=== PATIENT | male | born 1945 | race Hispanic/Latino ===

== ENCOUNTER 2018-11-25 15:29 | Inpatient (IN) | payer OTHER ==
[2018-11-25] MEDS ORDERED: PROVENTIL IH ONE ×2 (15:59→18:27)
[2018-11-25] MEDS ORDERED: ATROVENT IH ONE (15:59)
[2018-11-25] MEDS ORDERED: MAGNESIUM SULFATE 2GM/50ML 2 GM/50 ML BAG IV ONE (15:59)
[2018-11-25] MEDS ORDERED: SOLU-Medrol IV ONE (15:59)
--- NOTE | 2018-11-25 16:08 | Emergency Department Report ---
HPI - General Chief Complaint: Dyspnea/Respdistress Time Seen by Provider: 11/25/18 15:55 - HPI HPI: 73-year-old male presents to the emergency department via EMS with complaint of shortness of breath. The patient was on his way driving from [facility] to [place] and was in the area when he became very short of breath. He pulled over and they called EMS. He was given a breathing treatment in route with some improvement. He has a past medical history of asthma, hypertension and non-oxygen dependent COPD. He is still a tobacco smoker but denies any illicit drug use. He denies any fever, chest pain, back pain, nausea, lower extremity swelling, vomiting or diaphoresis. ED Past Medical Hx - Past Medical History Previous Medical History?: Yes Hx Hypertension: Yes Hx Asthma: Yes Hx COPD: Yes Additional medical history: enlarged heart - Surgical History Past Surgical History?: Yes Hx Appendectomy: Yes Additional Surgical History: hernia, left leg - Social History Smoking Status: Current Every Day Smoker Substance Use Type: None ED Review of Systems ROS: Stated complaint: SUNNY Other details as noted in HPI Comment: All other systems reviewed and negative Constitutional: denies: chills Eyes: denies: eye pain, vision change ENT: denies: ear pain, throat pain Respiratory: shortness of breath, wheezing Cardiovascular: denies: chest pain, edema Gastrointestinal: denies: abdominal pain, vomiting Genitourinary: denies: dysuria, discharge Musculoskeletal: denies: back pain, arthralgia Skin: denies: rash, lesions Neurological: denies: headache, weakness Physical Exam - Physical Exam Vital Signs: Vital Signs 11/25/18 11/25/18 15:47 15:51 Temperature 98.5 F Pulse Rate 80 Respiratory 20 20 Rate Blood Pressure 138/87 Blood Pressure 138/87 [Left] O2 Sat by Pulse 93 93 Oximetry Physical Exam: GENERAL: The patient is well-developed well-nourished. HENT: Normocephalic. Atraumatic. Patient has moist mucous membranes. EYES: Extraocular motions are intact. Pupils equal reactive to light bilaterally. NECK: Supple. Trachea is midline. CHEST/LUNGS: Moderate to severe wheezing throughout the chest. There is tachypnea with some accessory muscle use. There is some mild respiratory distress noted. HEART/CARDIOVASCULAR: Regular. There is no tachycardia. There is no murmur. ABDOMEN: Abdomen is soft, nontender. Patient has normal bowel sounds. There is no abdominal distention. SKIN: Skin is warm and dry. NEURO: The patient is awake, alert, and oriented. The patient is cooperative. The patient has no focal neurologic deficits. The patient has normal speech. MUSCULOSKELETAL: There is no tenderness or deformity. There is no evidence of a cute injury. ED Course Vital Signs 11/25/18 11/25/18 15:47 15:51 Temperature 98.5 F Pulse Rate 80 Respiratory 20 20 Rate Blood Pressure 138/87 Blood Pressure 138/87 [Left] O2 Sat by Pulse 93 93 Oximetry ED Medical Decision Making - Lab Data Result diagrams: 11/25/18 16:06 11/25/18 16:06 - EKG Data -: EKG Interpreted by Me EKG shows normal: sinus rhythm (PACs), axis, intervals, QRS complexes, ST-T waves Rate: normal - EKG Data When compared to previous EKG there are: previous EKG unavailable Interpretation: normal EKG - Radiology Data Radiology results: report reviewed, image reviewed interpreted by me: Chest x-ray shows some hyperinflation of the lungs. No obvious pneumonia, pleural effusions, focal consolidation and no pneumothorax. PROCEDURE: CT ANGIO CHEST TECHNIQUE: CT chest CT angiogram with intravenous contrast HISTORY: SOB, elevated dimer COMPARISONS: FINDINGS: No evidence for mediastinal mass or pathologic lymph node enlargement. Thoracic aorta is unremarkable. No filling defect observed within the central pulmonary arteries to suggest the presence of acute pulmonary embolus. There are marked pulmonary centrilobular and paraseptal emphysematous changes. No acute infiltrate identified. No pleural fluid collection seen. Noted are left hilar and mediastinal calcified lymph nodes. There is a small calcified granuloma in the left upper lobe. No pleural fluid collection seen. Visualized portion of the upper abdomen is unremarkable. IMPRESSION: Marked pulmonary emphysema No CT evidence for acute pulmonary embolus. This document is electronically signed by Andres Addison MD., Nov 25 2018 06:49:59 PM ET Transcribed By: KAYLYN Dictated By: CULLEN ADDISON MD Electronically Authenticated By: CULLEN ADDISON MD Signed Date/Time: 11/25/181851 - Medical Decision Making This COPD patient presents with some acute shortness of breath that started while driving on his way from [place] to [place]. No chest pain. EKG does not show any signs of ST elevation NV, ischemia or dysrhythmia. Chest x-ray shows some hyperinflation of the lungs but otherwise no pneumonia, pleural effusions, pneumothorax, or any other acute process. Patient's labs are mostly unremarkable except for a slightly elevated and equivocal d-dimer. For this reason a CT angiography of the chest was done that does not show any pulmonary embolism and appears consistent with market pulmonary emphysema. The patient was given Solu-Medrol, magnesium, and a total of 15 mg of albuterol, not including that given by EMS. The patient had some slight improvement and currently does not appear to require any BiPAP or mechanical ventilation but is not improved enough for discharge home at this time. The patient's oxygen saturation sits at about 90-91% with supplemental oxygen, and the patient is not oxygen dependent at home. The patient will be admitted to the hospital for further evaluation and treatment was except for admission by the hospitalist service, Dr Batista. - Differential Diagnosis COPD, PE, Pneumonia, CHF Critical Care Time: No Critical care attestation.: If time is entered above; I have spent that time in minutes in the direct care of this critically ill patient, excluding procedure time. ED Disposition Clinical Impression: COPD with exacerbation, Bronchospasm, Tobacco use disorder Dyspnea Qualifiers: Dyspnea type: shortness of breath Qualified Code(s): R06.02 - Shortness of breath; R06.00 - Dyspnea, unspecified; R06.01 - Orthopnea Disposition: OP ADMIT IP TO THIS HOSP Is pt being admited?: Yes Condition: Fair Instructions: Chronic Obstructive Pulmonary Disease (ED) Referrals: MYRON BROUSSARD MD [Referring] - 3-5 Days Time of Disposition: 19:43
[2018-11-25 16:25] LABS: Basophils % (Auto) 0.3 % (0.0-1.8); Eosinophils % (Auto) 0.4 % (0.0-4.3); Hematocrit 44.6 % (35.5-45.6); Lymphocytes # (Auto) 1.3 K/mm3 (1.2-5.4); Mean Corpuscular HGB Conc 34 % (32-34); Mean Corpuscular Volume 92 fl (84-94); Monocytes # (Auto) 1.1 K/mm3 (0.0-0.8); Platelet Count 283 K/mm3 (140-440); Red Blood Count 4.83 M/mm3 (3.65-5.03); Red Cell Distribution Width 14.7 % (13.2-15.2)
[2018-11-25 16:45] LABS: BUN/Creatinine Ratio 16; Blood Urea Nitrogen 8 mg/dL (9-20); Calcium 9.2 mg/dL (8.4-10.2); Hemolysis Index 8
--- NOTE | 2018-11-25 17:47 | XRay Report ---
PROCEDURE: XR CHEST 1V AP TECHNIQUE: Chest single AP HISTORY: Dyspnea COMPARISONS: FINDINGS: Cardiac and mediastinal contours are unremarkable. No focal infiltrate identified. No pleural fluid c ollection seen. Pulmonary vasculature is unremarkable. Calcified granuloma noted at the right lung ba se IMPRESSION: No acute abnormality identified in the chest. This document is electronically signed by Andres Oliveira MD., Nov 25 2018 05:45:55 PM ET
--- NOTE | 2018-11-25 18:52 | Cat Scan Report ---
PROCEDURE: CT ANGIO CHEST TECHNIQUE: CT chest CT angiogram with intravenous contrast HISTORY: SOB, elevated dimer COMPARISONS: FINDINGS: No evidence for mediastinal mass or pathologic lymph node enlargement. Thoracic aorta is unremarkable . No filling defect observed within the central pulmonary arteries to suggest the presence of acute pul monary embolus. There are marked pulmonary centrilobular and paraseptal emphysematous changes. No acute infiltrate id entified. No pleural fluid collection seen. Noted are left hilar and mediastinal calcified lymph nodes. There is a small calcified granuloma in t he left upper lobe. No pleural fluid collection seen. Visualized portion of the upper abdomen is unremarkable. IMPRESSION: Marked pulmonary emphysema No CT evidence for acute pulmonary embolus. This document is electronically signed by Andres Oliveira MD., Nov 25 2018 06:49:59 PM ET
--- NOTE | 2018-11-25 19:33 | History and Physical Report ---
History of Present Illness Chief complaint: I raj breathe History of present illness: 73 YO Male with Nicotine Dependence, HTN, Asthma, COPD presents to ED for evaluation. Pt states that that he and his were travelling in their vehicle on their way from [place] to [place] when he experienced sudden onset shortness of breath. Pt acknowledges productive cough with increased production of clear sputum over the past 2 days. Pt denies fever, chills, chest pain, palpitatons, syncope, NVD, Trauma, back pain, nausea, lower extremity swelling, diaphoresis, Skin rash, or recent ill contacts. Pt presented to the nearest ED. Pt seen and evaluated in ED and found to a pulse oximetry of 85%-88% on room air prior to nebulizer therapy. Pt found to have Acute Hypoxemic Respiratory Failure secondary to COPD Exacerbation. Pt treated with nebulizer therapy, supplemental oxygen, and steroid therapy in ED with improvement in symptoms. Pt admitted to [facility] unit. No prior admission for review. No medication listed at time of admission. Past History Past Medical History: COPD, hypertension Past Surgical History: appendectomy, hernia repair Social history: , lives with family, smoking Family history: hypertension Medications and Allergies Allergies Allergy/AdvReac Type Severity Reaction Status Date / Time No Known Allergies Allergy Unverified 11/25/18 16:08 Review of Systems Constitutional: no weight loss, no weight gain, no fever, no chills Ears, nose, mouth and throat: no ear pain, no ear discharge, no tinnitis, no decreased hearing, no nose pain Cardiovascular: no chest pain, no orthopnea, no palpitations, no rapid/irregular heart beat Respiratory: cough, cough with sputum, excessive sputum, shortness of breath, no congestion, no wheezing, no pleurisy, no pain Gastrointestinal: no nausea, no vomiting, no diarrhea, no constipation Genitourinary Male: no hematuria, no flank pain, no discharge, no urinary frequency, no urinary hesitancy Rectal: no pain, no incontinence, no bleeding Musculoskeletal: no neck pain, no shooting arm pain, no arm numbness/tingling, no low back pain, no shooting leg pain Integumentary: no rash, no pruritis, no redness, no sores, no wounds Neurological: no head injury, no transient paralysis, no paralysis, no weakness, no parathesias, no numbness, no tingling, no seizures Psychiatric: no anxiety, no memory loss, no change in sleep habits, no sleep disturbances, no insomnia, no hypersomnia, no change in appetite Endocrine: no cold intolerance, no heat intolerance, no polyphagia, no polydipsia, no nocturia Hematologic/Lymphatic: no easy bruising, no easy bleeding, no lymphadenopathy, no lymphedema Allergic/Immunologic: no urticaria, no allergic rhinitis, no wheezing, no anaphylaxis, no angioedema Exam - Constitutional Vitals: Temp Pulse Resp BP Pulse Ox 98.5 F 95 H 22 141/85 93 11/25/18 15:47 11/25/18 18:28 11/25/18 18:28 11/25/18 18:28 11/25/18 18:28 General appearance: Present: mild distress - EENT Eyes: Present: PERRL ENT: hearing intact, clear oral mucosa - Neck Neck: Present: supple, normal ROM - Respiratory Respiratory effort: labored, accessory muscle use, stridor Respiratory: bilateral: diminished, rhonchi - Cardiovascular Rhythm: other (tachycardia) Heart Sounds: Present: S1 & S2. Absent: rub, click - Extremities Extremities: pulses symmetrical, No edema Peripheral Pulses: within normal limits - Abdominal General gastrointestinal: Present: soft, non-tender, non-distended, normal bowel sounds Male genitourinary: Present: normal - Integumentary Integumentary: Present: clear, warm, dry - Musculoskeletal Musculoskeletal: gait normal, strength equal bilaterally - Psychiatric Psychiatric: appropriate mood/affect, intact judgment & insight, agitated, other (anxious) - Neurologic Neurologic: CNII-XII intact, moves all extremities Results - Labs CBC & Chem 7: 11/25/18 16:06 11/25/18 16:06 Labs: Abnormal lab results 11/25/18 11/25/18 11/25/18 Range/Units 16:06 16:06 16:06 Lymph % (Auto) 12.0 L (13.4-35.0) % Richardson % (Auto) 10.0 H (0.0-7.3) % Richardson # 1.1 H (0.0-0.8) K/mm3 Seg Neutrophils % 77.3 H (40.0-70.0) % Seg Neutrophils # 8.2 H (1.8-7.7) K/mm3 D-Dimer 274.40 H (0-234) ng/mlDDU Sodium 134 L (137-145) mmol/L Chloride 97.4 L (98-107) mmol/L BUN 8 L (9-20) mg/dL Creatinine 0.5 L (0.8-1.5) mg/dL Assessment and Plan - Patient Problems (1) Acute hypoxemic respiratory failure Current Visit: Yes Status: Acute Plan to address problem: Admit to [facility] unit, Supplemental oxygen, ABG, D dimer, CTA Chest to evaluate for PE, nebulizer therapy, chest x ray, pulse oximetry. (2) Hyponatremia syndrome Current Visit: Yes Status: Acute Plan to address problem: IVF resuscitation therapy, repeat bmp in am. (3) COPD with exacerbation Current Visit: Yes Status: Acute Plan to address problem: IV steroid therapy, IV antibiotic therapy, ABG, Chest x ray, NIPPV as clinically indicated, pulse oximetry, nebulizer therapy. (4) Nicotine dependence with withdrawal Current Visit: Yes Status: Acute Qualifiers: Nicotine product type: cigarettes Qualified Code(s): F17.213 - Nicotine dependence, cigarettes, with withdrawal Plan to address problem: Smoking cessation counseling, supportive care. (5) DVT prophylaxis Current Visit: Yes Status: Acute Plan to address problem: SCD to BLE while in bed, Prophylactic lovenox
[2018-11-25] MEDS ORDERED: ZOFRAN IV PRN (19:35)
[2018-11-25] MEDS ORDERED: SODIUM CHLORIDE FLUSH SYRINGE 10 ML IV PRN (19:35)
[2018-11-25] MEDS ORDERED: PERCOCET 5/325 PO PRN (19:35)
[2018-11-25] MEDS: LOVENOX SUB-Q SCH (23:41)
[2018-11-25] MEDS: SODIUM CHLORIDE FLUSH SYRINGE 10 ML IV SCH (23:42)
[2018-11-25] MEDS: ZITHROMAX 500 MG in NACL 0.9% 250ML 250 ML IV SCH (23:42)
[2018-11-25] MEDS: PEPCID PO SCH (23:42)
[2018-11-26] MEDS ORDERED: SOLU-Medrol IV SCH (04:00)
[2018-11-26 07:21] LABS: BUN/Creatinine Ratio 24; Blood Urea Nitrogen 12 mg/dL (9-20); Calcium 8.6 mg/dL (8.4-10.2); Hemolysis Index 21
[2018-11-26] MEDS: PROVENTIL IH PRN (09:29)
[2018-11-26] MEDS ORDERED: ISOSORBIDE MONONITRATE PO SCH (10:00)
[2018-11-26] MEDS: PEPCID PO SCH ×2 (10:05→21:35)
[2018-11-26] MEDS: SODIUM CHLORIDE FLUSH SYRINGE 10 ML IV SCH ×2 (10:05→21:36)
[2018-11-26] MEDS ORDERED: NON-FORMULARY (Amlodipine Besylate 5 MG) PO SCH (10:11)
--- NOTE | 2018-11-26 10:15 | Progress Note ---
Assessment and Plan Assessment and plan: 73-year-old man 73-year-old man with history of hypertension, tobacco abuse, COPD who was driving from [place] to [place] he experienced shortness of breath, also complaining of cough with clear sputum Past medical history; hypertension, COPD, smoking Labs reviewed mild hyponatremia noted CT angiogram chest shows marked pulmonary emphysema, negative for PE Plan -Steroids nebs and azithromycin, respiratory consult, pulmonology speech correction consultant - continue medications for chronic conditions -counseled on smoking cessation > 10 minutes DVT prophylaxis with Lovenox Diagnoses COPD exacerbation Acute hypoxic respiratory failure Hypertension Ongoing tobacco abuse History Interval history: Review of systems Constitutional: No fevers, no malaise, no joint pains CVS: No chest pain, no orthopnea, , no pedal edema GI: No abdominal pain, no diarrhea, no vomiting, no constipation Respiratory: Complaining of coughing, shortness of breath and wheezing Hospitalist Physical - Physical exam Narrative exam: General.: Appears well, mild distress, nontoxic HEENT: Moist mucous membranes, extraocular muscles intact, no lymphadenopathy Neck: supple Cardiac: S1-S2 heard Lungs: Decreased air entry, wheezing Abdomen: soft , nontender, nondistended, bowel sounds positive Extremities: no edema clubbing or cyanosis Skin: no rash or lesions Neurologic: no gross focal deficits Psych: calm, and cooperative - Constitutional Vitals: Temp Pulse Resp BP Pulse Ox 98.6 F 94 H 20 145/74 95 11/26/18 07:29 11/26/18 09:37 11/26/18 09:37 11/26/18 07:29 11/26/18 09:32 General appearance: Present: mild distress Results - Labs CBC & Chem 7: 11/25/18 16:06 11/26/18 06:32 Labs: Laboratory Last Values WBC 10.6 K/mm3 (4.5-11.0) 11/25/18 16:06 RBC 4.83 M/mm3 (3.65-5.03) 11/25/18 16:06 Hgb 15.0 gm/dl (11.8-15.2) 11/25/18 16:06 Hct 44.6 % (35.5-45.6) 11/25/18 16:06 MCV 92 fl (84-94) 11/25/18 16:06 MCH 31 pg (28-32) 11/25/18 16:06 MCHC 34 % (32-34) 11/25/18 16:06 RDW 14.7 % (13.2-15.2) 11/25/18 16:06 Plt Count 283 K/mm3 (140-440) 11/25/18 16:06 Lymph % (Auto) 12.0 % (13.4-35.0) L 11/25/18 16:06 [place] % (Auto) 10.0 % (0.0-7.3) H 11/25/18 16:06 Eos % (Auto) 0.4 % (0.0-4.3) 11/25/18 16:06 Baso % (Auto) 0.3 % (0.0-1.8) 11/25/18 16:06 Lymph # 1.3 K/mm3 (1.2-5.4) 11/25/18 16:06 [place] # 1.1 K/mm3 (0.0-0.8) H 11/25/18 16:06 Eos # 0.0 K/mm3 (0.0-0.4) 11/25/18 16:06 Baso # 0.0 K/mm3 (0.0-0.1) 11/25/18 16:06 Seg Neutrophils % 77.3 % (40.0-70.0) H 11/25/18 16:06 Seg Neutrophils # 8.2 K/mm3 (1.8-7.7) H 11/25/18 16:06 D-Dimer 274.40 ng/mlDDU (0-234) H 11/25/18 16:06 POC ABG pH 7.372 (7.35-7.45) 11/26/18 05:20 POC ABG pCO2 41.2 (35-45) 11/26/18 05:20 POC ABG pO2 109 (80-105) H 11/26/18 05:20 POC ABG HCO3 23.9 (22-26 mml/L) 11/26/18 05:20 POC ABG Total CO2 25 (23-27mmol/L) 11/26/18 05:20 POC ABG O2 Sat 98 11/26/18 05:20 POC ABG Base Excess -1 ((-2) - (+3)mmol/L) 11/26/18 05:20 FiO2 28 % 11/26/18 05:20 Sodium 133 mmol/L (137-145) L 11/26/18 06:32 Potassium 4.4 mmol/L (3.6-5.0) 11/26/18 06:32 Chloride 96.5 mmol/L (98-107) L 11/26/18 06:32 Carbon Dioxide 23 mmol/L (22-30) 11/26/18 06:32 Anion Gap 18 mmol/L 11/26/18 06:32 BUN 12 mg/dL (9-20) 11/26/18 06:32 Creatinine 0.5 mg/dL (0.8-1.5) L 11/26/18 06:32 Estimated GFR > 60 ml/min 11/26/18 06:32 BUN/Creatinine Ratio 24 % 11/26/18 06:32 Glucose 116 mg/dL (75-100) H 11/26/18 06:32 Calcium 8.6 mg/dL (8.4-10.2) 11/26/18 06:32 Magnesium 2.00 mg/dL (1.7-2.3) 11/25/18 16:06 Troponin T < 0.010 ng/mL (0.00-0.029) 11/25/18 16:06 Active Medications - Current Medications Current Medications: Generic Name Dose Route Start Last Admin Trade Name Freq PRN Reason Stop Dose Admin Acetaminophen 650 mg 11/25/18 19:35 Tylenol PO Q4H PRN Pain MILD(1-3)/Fever >100.5/DOVE Albuterol 2.5 mg 11/25/18 19:35 11/26/18 09:29 Proventil IH 2.5 mg Q4HRT PRN Administration Shortness Of Breath Enoxaparin Sodium 40 mg 11/25/18 22:00 11/25/18 23:41 Lovenox SUB-Q 40 mg QDAY@2200 JOSE RAFAEL Administration Famotidine 10 mg 11/25/18 22:00 11/26/18 10:05 Pepcid PO 10 mg BID JOSE RAFAEL Administration Azithromycin 500 mg/ Sodium 250 mls @ 250 mls/hr 11/25/18 22:00 11/25/18 23:42 Chloride IV 250 mls/hr Q24H JOSE RAFAEL Administration Methylprednisolone Sodium Succinate 40 mg 11/26/18 04:00 11/26/18 04:09 Solu-Medrol IV 40 mg Q12H JOSE RAFAEL Administration Ondansetron HCl 4 mg 11/25/18 19:35 Zofran IV Q8H PRN Nausea And Vomiting Oxycodone/Acetaminophen 1 tab 11/25/18 19:35 Percocet 5/325 PO Q6H PRN Pain, Moderate (4-6) Sodium Chloride 10 ml 11/25/18 22:00 11/26/18 10:05 Sodium Chloride Flush Syringe 10 Ml IV 10 ml BID JOSE RAFAEL Administration Sodium Chloride 10 ml 11/25/18 19:35 Sodium Chloride Flush Syringe 10 Ml IV PRN PRN LINE FLUSH
[2018-11-26] MEDS: NORVASC PO SCH ×2 (10:59→21:34)
[2018-11-26] MEDS ORDERED: LIORESAL PO SCH (11:00)
--- NOTE | 2018-11-26 11:40 | Consultation ---
History of Present Illness Consult date: 11/26/18 Requesting physician: HELEN CABALLERO Reason for consult: COPD, hypoxemia History of present illness: 73 YO Male with Nicotine Dependence, HTN, Asthma, COPD presents to ED for evaluation. Pt states that that he and his were travelling in their vehicle on their way from [place] to [place] when he experienced sudden onset shortness of breath. Pt acknowledges productive cough with increased production of clear sputum over the past 2 days. Pt denies fever, chills, chest pain, palpitatons, syncope, NVD, Trauma, back pain, nausea, lower extremity swelling, diaphoresis, Skin rash, or recent ill contacts. Pt presented to the nearest ED. Pt seen and evaluated in ED and found to a pulse oximetry of 85%-88% on room air prior to nebulizer therapy. Pt found to have Acute Hypoxemic Respiratory Failure secondary to COPD Exacerbation. Pt treated with nebulizer therapy, supplemental oxygen, and steroid therapy in ED with improvement in symptoms. Pt admitted to [facility] unit. I have been consulted for acute hypoxemic respiratory failure and AE-COPD in a patient with on going tobacco use disorder. Patient was seen and examined. Vitals, labs, medications,chart and imaging reviewed. He is currently on supplemental oxygen, audible wheeze. His is at the bedside Past History Past Medical History: COPD, hypertension Past Surgical History: appendectomy, hernia repair Social history: , lives with family, smoking Family history: hypertension Medications and Allergies Allergies Allergy/AdvReac Type Severity Reaction Status Date / Time No Known Allergies Allergy Unverified 11/25/18 16:08 Home Medications Medication Instructions Recorded Confirmed Last Taken Type ALBUTEROL Inhaler(NF) 90 mg INHALATION BID 11/25/18 11/25/18 Unknown History Amlodipine Besylate 5 mg PO BID 11/25/18 11/26/18 Unknown History Baclofen 10 mg PO HS 11/25/18 11/26/18 Unknown History Cyanocobalamin 100 mg PO QDAY 11/25/18 11/25/18 Unknown History ISOSORBIDE MONOnitrate 30 mg PO QDAY 11/25/18 11/26/18 Unknown History Potassium Chloride 10 meq PO QDAY 11/25/18 11/25/18 Unknown History Spiriva 18 mcg INHALATION QDAY 11/25/18 11/25/18 Unknown History Symbicort 160-4.5 Mcg Inhaler 4.5 mcg INHALATION QID 11/25/18 11/25/18 Unknown History Active Meds: Active Medications Acetaminophen (Tylenol) 650 mg PO Q4H PRN PRN Reason: Pain MILD(1-3)/Fever >100.5/DOVE Albuterol (Proventil) 2.5 mg IH Q4HRT PRN PRN Reason: Shortness Of Breath Last Admin: 11/26/18 09:29 Dose: 2.5 mg Documented by: Albuterol/Ipratropium (Duoneb *Not For Prn Use*) 1 ampul IH Q6HRT [facility] Amlodipine Besylate (Norvasc) 5 mg PO BID [facility] Last Admin: 11/26/18 10:59 Dose: 5 mg Documented by: Arformoterol Tartrate (Brovana Nebu) 15 mcg IH Q12HRT [facility] Baclofen (Lioresal) 10 mg PO DAILY [facility] Budesonide (Pulmicort) 0.5 mg IH Q12HRT [facility] Cyanocobalamin (Vitamin B-12) 100 mcg PO QDAY [facility] Enoxaparin Sodium (Lovenox) 40 mg SUB-Q QDAY@2200 [facility] Last Admin: 11/25/18 23:41 Dose: 40 mg Documented by: Famotidine (Pepcid) 10 mg PO BID [facility] Last Admin: 11/26/18 10:05 Dose: 10 mg Documented by: Azithromycin 500 mg/ Sodium (Chloride) 250 mls @ 250 mls/hr IV Q24H [facility] Last Admin: 11/25/18 23:42 Dose: 250 mls/hr Documented by: Methylprednisolone Sodium Succinate (Solu-Medrol) 40 mg IV Q12H [facility] Last Admin: 11/26/18 04:09 Dose: 40 mg Documented by: Miscellaneous Medication (Isosorbide Mononitrate) 300 mg PO QDAY [facility] Ondansetron HCl (Zofran) 4 mg IV Q8H PRN PRN Reason: Nausea And Vomiting Oxycodone/Acetaminophen (Percocet 5/325) 1 tab PO Q6H PRN PRN Reason: Pain, Moderate (4-6) Sodium Chloride (Sodium Chloride Flush Syringe 10 Ml) 10 ml IV BID [facility] Last Admin: 11/26/18 10:05 Dose: 10 ml Documented by: Sodium Chloride (Sodium Chloride Flush Syringe 10 Ml) 10 ml IV PRN PRN PRN Reason: LINE FLUSH Review of Systems Constitutional: weakness, no fever, no chills, no sweats, no night sweats, no anorexia Cardiovascular: shortness of breath, no chest pain, no orthopnea, no palpitations, no rapid/irregular heart beat, no edema, no syncope, no lightheadedness Respiratory: cough, shortness of breath, dyspnea on exertion, congestion, wheezing Gastrointestinal: no abdominal pain, no nausea, no vomiting, no diarrhea, no constipation, no change in bowel habits Genitourinary Male: no dysuria, no hematuria, no flank pain Musculoskeletal: muscle weakness, no neck stiffness, no neck pain, no arm numbness/tingling, no low back pain, no shooting leg pain Neurological: no paralysis, no parathesias, no numbness, no tingling, no seizures, no syncope Physical Examination Vital signs: Vital Signs Pulse Ox 92 11/25/18 15:42 General appearance: Present: mild distress, atraumatic, normocephalic, cachexia - EENT Eyes: Present: PERRL ENT: hearing intact, clear oral mucosa - Neck Neck: Present: supple, normal ROM - Respiratory Respiratory effort: labored, accessory muscle use, Respiratory: bilateral: diminished,expiratroy wheeze - Cardiovascular Rhythm: other (tachycardia) Heart Sounds: Present: S1 & S2. Absent: rub, click - Extremities Extremities: pulses symmetrical, No edema Peripheral Pulses: within normal limits - Abdominal General gastrointestinal: Present: soft, non-tender, non-distended, normal bowel sounds Male genitourinary: Present: normal - Integumentary Integumentary: Present: clear, warm, dry - Musculoskeletal Musculoskeletal: gait normal, strength equal bilaterally - Psychiatric Psychiatric: appropriate mood/affect, intact judgment & insight, agitated, other (anxious) - Neurologic Neurologic: CNII-XII intact, moves all extremities Results - Laboratory Findings CBC and BMP: 11/25/18 16:06 11/26/18 06:32 ABG POC ABG pH 7.372 (7.35-7.45) 11/26/18 05:20 POC ABG pCO2 41.2 (35-45) 11/26/18 05:20 POC ABG pO2 109 (80-105) H 11/26/18 05:20 POC ABG HCO3 23.9 (22-26 mml/L) 11/26/18 05:20 POC ABG Total CO2 25 (23-27mmol/L) 11/26/18 05:20 POC ABG O2 Sat 98 11/26/18 05:20 PT/INR, D-dimer D-Dimer 274.40 ng/mlDDU (0-234) H 11/25/18 16:06 Abnormal lab findings: Abnormal Labs 11/25/18 11/25/18 11/25/18 16:06 16:06 16:06 Lymph % (Auto) 12.0 L [place] % (Auto) 10.0 H [place] # 1.1 H Seg Neutrophils % 77.3 H Seg Neutrophils # 8.2 H D-Dimer 274.40 H POC ABG pO2 Sodium 134 L Chloride 97.4 L BUN 8 L Creatinine 0.5 L Glucose 11/26/18 11/26/18 05:20 06:32 Lymph % (Auto) [place] % (Auto) [place] # Seg Neutrophils % Seg Neutrophils # D-Dimer POC ABG pO2 109 H Sodium 133 L Chloride 96.5 L BUN Creatinine 0.5 L Glucose 116 H - Diagnostic Findings Chest x-ray: image reviewed (Stigmata of COPD) CT scan - chest: image reviewed (No PE, emphysema, diffuse and homogenous) Assessment and Plan Acute hypoxemic respiratory failure AECOPD Nicotine dependence disorder with tobacco use( on going) -Wean supplemental oxygen to keep O2 sats 88-90% -ABG in the am -Steroids, increase dose and frequency -Accucheck with glycemic control while on steroids -Target blood glucose 140-180mg/dL -VTE prophylaxis -Bronchodilators -Nicotine withdrawal precautions -Tobacco cessation counselling done at the bedside fro 10 minutes He states that he has been smoking since age 15 and it's hard to quit. He has apparently tried the nicotine lozenges, adn was afraid to try Chantix, because of it's possible side effect. -Azithromycin for its anti-inflammatory properties -care plan discussed at length with RN/RT at the bedside PROGNOSIS: GUARDED CONDITION: CRITICAL CODE STATUS: FULL CODE The high probability of a clinically significant, sudden or life-threatening deterioration of the [respiratory] system(s) required my full and direct attention, intervention and personal management. The aggregate critical care time was [30] minutes without overlap. Time includes spent on; [x] Data Review and interpretation [x] Patient assessment and monitoring of vital signs [x] Documentation [x] Medication orders and management
[2018-11-26] MEDS: DUONEB *Not for PRN Use IH SCH ×3 (12:15→21:08)
[2018-11-26] MEDS: VITAMIN B-12 PO SCH (12:20)
[2018-11-26] MEDS: IMDUR PO SCH (12:20)
[2018-11-26] MEDS: HABITROL TD SCH (15:00)
[2018-11-26] MEDS: SOLU-Medrol IV SCH ×2 (15:00→21:34)
[2018-11-26] MEDS: TYLENOL PO PRN (15:42)
[2018-11-26] MEDS: BROVANA NEBU IH SCH (21:08)
[2018-11-26] MEDS: PULMICORT IH SCH (21:08)
[2018-11-26] MEDS: LIORESAL PO SCH (21:35)
[2018-11-26] MEDS: LOVENOX SUB-Q SCH (21:35)
[2018-11-26] MEDS: ZITHROMAX 500 MG in NACL 0.9% 250ML 250 ML IV SCH (21:36)
[2018-11-27] MEDS: DUONEB *Not for PRN Use IH SCH ×4 (02:38→20:33)
[2018-11-27] MEDS: SOLU-Medrol IV SCH ×3 (06:08→21:26)
[2018-11-27] MEDS: IMDUR PO SCH (09:11)
[2018-11-27] MEDS: NORVASC PO SCH ×2 (09:11→21:27)
[2018-11-27] MEDS: PEPCID PO SCH ×2 (09:11→21:26)
[2018-11-27] MEDS: SODIUM CHLORIDE FLUSH SYRINGE 10 ML IV SCH ×2 (09:13→21:27)
[2018-11-27] MEDS: HABITROL TD SCH (09:13)
[2018-11-27] MEDS: VITAMIN B-12 PO SCH (09:13)
[2018-11-27] MEDS: PULMICORT IH SCH ×2 (09:30→20:33)
[2018-11-27] MEDS: BROVANA NEBU IH SCH ×2 (09:30→20:33)
[2018-11-27] MEDS ORDERED: NON-FORMULARY (Baclofen 10 MG) PO SCH (10:00)
[2018-11-27] MEDS ORDERED: CYANOCOBALAMIN 100 MG PO SCH (10:00)
--- NOTE | 2018-11-27 14:24 | Progress Note ---
Assessment and Plan Acute hypoxemic respiratory failure AECOPD Nicotine dependence disorder with tobacco use( on going) -Wean supplemental oxygen to keep O2 sats 88-90% -ABG today and home oxygen evalaution If he qualifies, Case management to make oxygen available for discharge in the morning. -Steroids -Accucheck with glycemic control while on steroids -Target blood glucose 140-180mg/dL -VTE prophylaxis -Bronchodilators -Nicotine withdrawal precautions -Tobacco cessation counselling done at the bedside fro 10 minutes He states that he has been smoking since age 15 and it's hard to quit. He has apparently tried the nicotine lozenges, and was afraid to try Chantix, because of it's possible side effect. -Azithromycin for its anti-inflammatory properties -care plan discussed at length with RN/RT at the bedside Discharge planning_ patient can be discharged on oxygen, if he qualifies; Bronchodilators (LABA/LAMA- can start Trelegy or ANORO) Steroids with slow taper- Prednisone 30mg po qdaily for 5 days, decrease prednisone dose by 10 mg every 5 days Complete course of antibitoics for severe AE-COPD Azithromycin 500mg po Q M,W,F May benefit from Daliresp as an outpatient Nicotine patches. PROGNOSIS: FAIR CONDITION:FAIR CODE STATUS: FULL CODE Subjective Date of service: 11/27/18 Interval history: Follow up today fro Acute hypoxic respiratory failure, AE-COPD, Nicotine dependence with tobacco use disorder Seen and examined. 24 hour events reviewed. States that he is feeling better. Denies any fevers and chills. Dry cough at this time, no diarrhea. Wants to know if he can continue on his trip to [place] tomorrow, as his boys are going to pick him up. at the bedside. Was not on home oxygen, prior to this hospitalization. Was ambulatory with a walker Objective - Exam Narrative Exam: General.: Appears well, mild distress, nontoxic HEENT: Moist mucous membranes, extraocular muscles intact, no lymphadenopathy Neck: supple, no adenopathy, no JVD Cardiac: S1-S2 heard,RRR Lungs: Decreased air entry, long expiratory phase, much improved Abdomen: soft , non tender, non distended, bowel sounds positive Extremities: no edema clubbing or cyanosis Skin: no rash or lesions Neurologic: no gross focal deficits Psych: calm, and cooperative Vital Signs - 12hr 11/27/18 11/27/18 11/27/18 07:46 09:11 09:31 Temperature 97.7 F Pulse Rate 78 78 Pulse Rate [ 83 Anterior Bilateral Throughout] Respiratory 22 Rate Respiratory 17 Rate [Anterior Bilateral Throughout] Blood Pressure 126/68 126/68 O2 Sat by Pulse 94 96 Oximetry 11/27/18 11/27/18 11/27/18 09:39 13:02 13:13 Temperature Pulse Rate Pulse Rate [ 91 H 87 92 H Anterior Bilateral Throughout] Respiratory Rate Respiratory 17 15 15 Rate [Anterior Bilateral Throughout] Blood Pressure O2 Sat by Pulse Oximetry 11/27/18 13:45 Temperature 97.9 F Pulse Rate 90 Pulse Rate [ Anterior Bilateral Throughout] Respiratory 22 Rate Respiratory Rate [Anterior Bilateral Throughout] Blood Pressure 123/71 O2 Sat by Pulse 93 Oximetry CBC and BMP: 11/25/18 16:06 11/26/18 06:32 ABG, PT/INR, D-dimer: ABG POC ABG pH 7.487 (7.35-7.45) H 11/27/18 12:50 POC ABG pCO2 41.2 (35-45) 11/26/18 05:20 POC ABG pO2 83 (80-105) 11/27/18 12:50 POC ABG HCO3 21.9 (22-26 mml/L) 11/27/18 12:50 POC ABG Total CO2 23 (23-27mmol/L) 11/27/18 12:50 POC ABG O2 Sat 97 11/27/18 12:50 PT/INR, D-dimer D-Dimer 274.40 ng/mlDDU (0-234) H 11/25/18 16:06 Abnormal lab findings: Abnormal Labs 11/25/18 11/25/18 11/25/18 16:06 16:06 16:06 Lymph % (Auto) 12.0 L [place] % (Auto) 10.0 H [place] # 1.1 H Seg Neutrophils % 77.3 H Seg Neutrophils # 8.2 H D-Dimer 274.40 H POC ABG pH POC ABG pO2 Sodium 134 L Chloride 97.4 L BUN 8 L Creatinine 0.5 L Glucose 11/26/18 11/26/18 11/27/18 05:20 06:32 12:42 Lymph % (Auto) [place] % (Auto) [place] # Seg Neutrophils % Seg Neutrophils # D-Dimer POC ABG pH 7.629 H POC ABG pO2 109 H Sodium 133 L Chloride 96.5 L BUN Creatinine 0.5 L Glucose 116 H 11/27/18 12:50 Lymph % (Auto) [place] % (Auto) [place] # Seg Neutrophils % Seg Neutrophils # D-Dimer POC ABG pH 7.487 H POC ABG pO2 Sodium Chloride BUN Creatinine Glucose
--- NOTE | 2018-11-27 14:51 | Progress Note ---
Assessment and Plan Assessment and plan: 73-year-old man 73-year-old man with history of hypertension, tobacco abuse, COPD who was driving from [place] to [place] he experienced shortness of breath, also complaining of cough with clear sputum Past medical history; hypertension, COPD, smoking Labs reviewed mild hyponatremia noted CT angiogram chest shows marked pulmonary emphysema, negative for PE Plan -Steroids nebs and azithromycin, respiratory consult, pulmonology business development consultant -for dc will need steroid, nicotine patches/lozenges, patient does not want to try chantix (he is afraid of side effects), desat to 86% when walking today, will need amb o2 upon dc - continue medications for chronic conditions -counseled on smoking cessation > 10 minutes DVT prophylaxis with Lovenox Tentative dc home tomorrow with oxygen Diagnoses COPD exacerbation Acute hypoxic respiratory failure Hypertension Ongoing tobacco abuse History Interval history: Review of systems Constitutional: No fevers, no malaise, no joint pains CVS: No chest pain, no orthopnea, , no pedal edema GI: No abdominal pain, no diarrhea, no vomiting, no constipation Respiratory: Complaining of coughing, shortness of breath and wheezing Hospitalist Physical - Physical exam Narrative exam: General.: Appears well, mild distress, nontoxic HEENT: Moist mucous membranes, extraocular muscles intact, no lymphadenopathy Neck: supple Cardiac: S1-S2 heard Lungs: Decreased air entry, wheezing Abdomen: soft , nontender, nondistended, bowel sounds positive Extremities: no edema clubbing or cyanosis Skin: no rash or lesions Neurologic: no gross focal deficits Psych: calm, and cooperative - Constitutional Vitals: Temp Pulse Resp BP Pulse Ox 97.9 F 90 22 123/71 93 11/27/18 13:45 11/27/18 13:45 11/27/18 13:45 11/27/18 13:45 11/27/18 13:45 General appearance: Present: mild distress Results - Labs CBC & Chem 7: 11/25/18 16:06 11/26/18 06:32 Labs: Laboratory Last Values WBC 10.6 K/mm3 (4.5-11.0) 11/25/18 16:06 RBC 4.83 M/mm3 (3.65-5.03) 11/25/18 16:06 Hgb 15.0 gm/dl (11.8-15.2) 11/25/18 16:06 Hct 44.6 % (35.5-45.6) 11/25/18 16:06 MCV 92 fl (84-94) 11/25/18 16:06 MCH 31 pg (28-32) 11/25/18 16:06 MCHC 34 % (32-34) 11/25/18 16:06 RDW 14.7 % (13.2-15.2) 11/25/18 16:06 Plt Count 283 K/mm3 (140-440) 11/25/18 16:06 Lymph % (Auto) 12.0 % (13.4-35.0) L 11/25/18 16:06 [place] % (Auto) 10.0 % (0.0-7.3) H 11/25/18 16:06 Eos % (Auto) 0.4 % (0.0-4.3) 11/25/18 16:06 Baso % (Auto) 0.3 % (0.0-1.8) 11/25/18 16:06 Lymph # 1.3 K/mm3 (1.2-5.4) 11/25/18 16:06 Crisp # 1.1 K/mm3 (0.0-0.8) H 11/25/18 16:06 Eos # 0.0 K/mm3 (0.0-0.4) 11/25/18 16:06 Baso # 0.0 K/mm3 (0.0-0.1) 11/25/18 16:06 Seg Neutrophils % 77.3 % (40.0-70.0) H 11/25/18 16:06 Seg Neutrophils # 8.2 K/mm3 (1.8-7.7) H 11/25/18 16:06 D-Dimer 274.40 ng/mlDDU (0-234) H 11/25/18 16:06 POC ABG pH 7.487 (7.35-7.45) H 11/27/18 12:50 POC ABG pCO2 41.2 (35-45) 11/26/18 05:20 POC ABG pO2 83 (80-105) 11/27/18 12:50 POC ABG HCO3 21.9 (22-26 mml/L) 11/27/18 12:50 POC ABG Total CO2 23 (23-27mmol/L) 11/27/18 12:50 POC ABG O2 Sat 97 11/27/18 12:50 POC ABG Base Excess -1 ((-2) - (+3)mmol/L) 11/27/18 12:50 FiO2 21 % 11/27/18 12:50 Sodium 133 mmol/L (137-145) L 11/26/18 06:32 Potassium 4.4 mmol/L (3.6-5.0) 11/26/18 06:32 Chloride 96.5 mmol/L (98-107) L 11/26/18 06:32 Carbon Dioxide 23 mmol/L (22-30) 11/26/18 06:32 Anion Gap 18 mmol/L 11/26/18 06:32 BUN 12 mg/dL (9-20) 11/26/18 06:32 Creatinine 0.5 mg/dL (0.8-1.5) L 11/26/18 06:32 Estimated GFR > 60 ml/min 11/26/18 06:32 BUN/Creatinine Ratio 24 % 11/26/18 06:32 Glucose 116 mg/dL (75-100) H 11/26/18 06:32 Calcium 8.6 mg/dL (8.4-10.2) 11/26/18 06:32 Magnesium 2.00 mg/dL (1.7-2.3) 11/25/18 16:06 Troponin T < 0.010 ng/mL (0.00-0.029) 11/25/18 16:06 Active Medications - Current Medications Current Medications: Generic Name Dose Route Start Last Admin Trade Name Nasirq PRN Reason Stop Dose Admin Acetaminophen 650 mg 11/25/18 19:35 11/26/18 15:42 Tylenol PO 650 mg Q4H PRN Administration Pain MILD(1-3)/Fever >100.5/DOVE Albuterol 2.5 mg 11/25/18 19:35 11/26/18 09:29 Proventil IH 2.5 mg Q4HRT PRN Administration Shortness Of Breath Albuterol/Ipratropium 1 ampul 11/26/18 10:30 11/27/18 13:01 Duoneb *Not For Prn Use* IH 1 ampul Q6HRT JOSE RAFAEL Administration Amlodipine Besylate 5 mg 11/26/18 11:00 11/27/18 09:11 Norvasc PO 5 mg BID JOSE RAFAEL Administration Arformoterol Tartrate 15 mcg 11/26/18 20:00 11/27/18 09:30 Brovana Nebu IH Not Given Q12HRT JOSE RAFAEL Baclofen 10 mg 11/26/18 22:00 11/26/18 21:35 Lioresal PO 10 mg QHS JOSE RAFAEL Administration Budesonide 0.5 mg 11/26/18 20:00 11/27/18 09:30 Pulmicort IH Not Given Q12HRT JOSE RAFAEL Cyanocobalamin 100 mcg 11/26/18 11:00 11/27/18 09:13 Vitamin B-12 PO 100 mcg QDAY [facility] Administration Enoxaparin Sodium 40 mg 11/25/18 22:00 11/26/18 21:35 Lovenox SUB-Q 40 mg QDAY@2200 JOSE RAFAEL Administration Famotidine 10 mg 11/25/18 22:00 11/27/18 09:11 Pepcid PO 10 mg BID [facility] Administration Azithromycin 500 mg/ Sodium 250 mls @ 250 mls/hr 11/25/18 22:00 11/26/18 21:36 Chloride IV 250 mls/hr Q24H JOSE RAFAEL Administration Isosorbide Mononitrate 30 mg 11/26/18 12:00 11/27/18 09:11 Imdur PO 30 mg DAILY [facility] Administration Methylprednisolone Sodium Succinate 60 mg 11/26/18 14:00 11/27/18 06:08 Solu-Medrol IV 60 mg Q8HR JOSE RAFAEL Administration Nicotine 21 mg 11/26/18 14:00 11/27/18 09:13 Habitrol TD 21 mg QDAY JOSE RAFAEL Administration Ondansetron HCl 4 mg 11/25/18 19:35 Zofran IV Q8H PRN Nausea And Vomiting Oxycodone/Acetaminophen 1 tab 11/25/18 19:35 Percocet 5/325 PO Q6H PRN Pain, Moderate (4-6) Sodium Chloride 10 ml 11/25/18 22:00 11/27/18 09:13 Sodium Chloride Flush Syringe 10 Ml IV 10 ml BID JOSE RAFAEL Administration Sodium Chloride 10 ml 11/25/18 19:35 Sodium Chloride Flush Syringe 10 Ml IV PRN PRN LINE FLUSH
[2018-11-27] MEDS: LIORESAL PO SCH (21:26)
[2018-11-27] MEDS: LOVENOX SUB-Q SCH (21:26)
[2018-11-27] MEDS: ZITHROMAX 500 MG in NACL 0.9% 250ML 250 ML IV SCH (21:59)
[2018-11-28] MEDS: SOLU-Medrol IV SCH ×4 (05:48→22:04)
[2018-11-28] MEDS: DUONEB *Not for PRN Use IH SCH ×5 (06:13→19:07)
[2018-11-28] MEDS: PULMICORT IH SCH ×2 (06:59→19:00)
[2018-11-28] MEDS: BROVANA NEBU IH SCH ×2 (06:59→19:00)
[2018-11-28] MEDS: HABITROL TD SCH (10:42)
[2018-11-28] MEDS: NORVASC PO SCH ×3 (10:43→22:05)
[2018-11-28] MEDS: IMDUR PO SCH (10:43)
[2018-11-28] MEDS: SODIUM CHLORIDE FLUSH SYRINGE 10 ML IV SCH ×3 (10:43→22:05)
[2018-11-28] MEDS: VITAMIN B-12 PO SCH (10:43)
[2018-11-28] MEDS: PEPCID PO SCH ×3 (10:43→22:05)
--- NOTE | 2018-11-28 11:49 | Discharge Summary ---
Providers - Providers Date of Admission: 11/25/18 19:35 Attending physician: HELEN CABALLERO MD 11/26/18 10:12 Consult to Physician [CONS] Routine Comment: Consulting Provider: JOSE BERMUDEZ Physician Instructions: Reason For Exam: copd 11/27/18 14:24 Consult to Case Management [CONS] Urgent Services Needed at Discharge: Home O2 Other Notified:: No Additional Physician Instructions: Oxygen for discharge planning if he qualifies for home oxygen therapy. Patient wants to leave first thing in the morning if at all possible Hospitalization Condition: Fair Hospital course: 73-year-old man 73-year-old man with history of hypertension, tobacco abuse, COPD who was driving from [place] to [place] he experienced shortness of breath, also complaining of cough with clear sputum Past medical history; hypertension, COPD, smoking Labs reviewed mild hyponatremia noted CT angiogram chest shows marked pulmonary emphysema, negative for PE Plan -Steroids nebs and azithromycin, respiratory consult, pulmonology admissions consultant -for dc will need steroid, anoro or trelegy, nicotine patches/lozenges, patient does not want to try chantix (he is afraid of side effects), desat to 86% when walking today, will need amb o2 upon dc - continue medications for chronic conditions -counseled on smoking cessation > 10 minutes DVT prophylaxis with Lovenox Tentative dc home tomorrow with oxygen Diagnoses COPD exacerbation Acute hypoxic respiratory failure Hypertension Ongoing tobacco abuse Disposition: DC-01 TO HOME OR SELFCARE Time spent for discharge: 33 mins Core Measure Documentation - Palliative Care Palliative Care/ Comfort Measures: Not Applicable - Core Measures Any of the following diagnoses?: none Exam - Constitutional Vitals: Temp Pulse Resp BP Pulse Ox 97.5 F L 71 22 145/76 95 11/28/18 07:58 11/28/18 10:43 11/28/18 09:00 11/28/18 10:43 11/28/18 07:58 General appearance: Present: no acute distress, well-nourished - EENT Eyes: Present: PERRL ENT: hearing intact, clear oral mucosa - Neck Neck: Present: supple, normal ROM - Respiratory Respiratory effort: normal Respiratory: bilateral: CTA - Cardiovascular Heart Sounds: Present: S1 & S2. Absent: rub, click - Extremities Extremities: pulses symmetrical, No edema Peripheral Pulses: within normal limits - Abdominal General gastrointestinal: Present: soft, non-tender, non-distended, normal bowel sounds Male genitourinary: Present: normal - Integumentary Integumentary: Present: clear, warm, dry - Musculoskeletal Musculoskeletal: gait normal, strength equal bilaterally - Psychiatric Psychiatric: appropriate mood/affect, intact judgment & insight - Neurologic Neurologic: CNII-XII intact, moves all extremities Plan Follow up with: GRI[facility] BROUSSARDFORMERLY [facility] MD [place] [Referring] - 3-5 Days Prescriptions: ALBUTEROL Inhaler(NF) 1 puff INHALATION Q4H PRN #1 PRN Reason: Shortness Of Breath Nicotine [Habitrol] 21 mg TD QDAY #30 patch ISOSORBIDE MONOnitrate [Imdur ER] 30 mg PO DAILY #30 tablet
--- NOTE | 2018-11-28 13:55 | Progress Note ---
Assessment and Plan Patient awake and resting on 3 litres O2. O2 saturation 97%. Patient still complaining shortness of breath on exertion.Recommend 6 minute walk test. - Patient Problems (1) Acute hypoxemic respiratory failure Current Visit: Yes Status: Acute Plan to address problem: O2 2 litres via nasal canula. Albuterol/atrovent aerosol treatments q 6 hours. Continue I/V solumedrol Continue Zithromax. Continue S/C Lovenox. Continue Famotidine. (2) COPD with exacerbation Current Visit: Yes Status: Acute Plan to address problem: O2 2 litres via nasal canula. Albuterol/atrovent aerosol treatments q 6 hours. Continue I/V solumedrol Continue Zithromax. Continue S/C Lovenox. Continue Famotidine. PFTs as out patient. Continue Nicotin patch to stop smoking. (3) Hyponatremia syndrome Current Visit: Yes Status: Acute Plan to address problem: Improved. Patients recent Na+ 133. (4) Nicotine dependence with withdrawal Current Visit: Yes Status: Acute Qualifiers: Nicotine product type: cigarettes Qualified Code(s): F17.213 - Nicotine dependence, cigarettes, with withdrawal Plan to address problem: Continue Nicotin Patch to stop smoking. Subjective Date of service: 11/28/18 Interval history: Patient awake and resting on 3 litres O2. O2 saturation 97%. Patient still complaining shortness of breath on exertion.Recommend 6 minute walk test. Objective Vital Signs - 12hr 11/28/18 11/28/18 11/28/18 02:06 06:59 07:09 Temperature 97.5 F L Pulse Rate 71 Pulse Rate [ 78 80 Anterior Bilateral Throughout] Pulse Rate [ Apical] Respiratory 20 Rate Respiratory 20 20 Rate [Anterior Bilateral Throughout] Blood Pressure 131/79 O2 Sat by Pulse 95 96 Oximetry 11/28/18 11/28/18 11/28/18 07:58 09:00 10:43 Temperature 97.5 F L Pulse Rate 71 71 Pulse Rate [ Anterior Bilateral Throughout] Pulse Rate [ 72 Apical] Respiratory 20 22 Rate Respiratory Rate [Anterior Bilateral Throughout] Blood Pressure 145/76 145/76 O2 Sat by Pulse 95 Oximetry 11/28/18 11/28/18 11/28/18 11:38 11:41 11:43 Temperature Pulse Rate 78 100 H 86 Pulse Rate [ Anterior Bilateral Throughout] Pulse Rate [ Apical] Respiratory Rate Respiratory Rate [Anterior Bilateral Throughout] Blood Pressure O2 Sat by Pulse 92 86 91 Oximetry 11/28/18 12:58 Temperature Pulse Rate Pulse Rate [ 79 Anterior Bilateral Throughout] Pulse Rate [ Apical] Respiratory Rate Respiratory 20 Rate [Anterior Bilateral Throughout] Blood Pressure O2 Sat by Pulse Oximetry Constitutional: no acute distress, alert, other (Shortness of breath on exertion.) Eyes: non-icteric ENT: oropharynx moist Neck: supple, no lymphadenopathy Ascultation: Bilateral: diminished breath sounds, other (Prolonged expiratory phase.) Cardiovascular: regular rate and rhythm Gastrointestinal: normoactive bowel sounds, soft, non-tender Integumentary: normal Extremities: no cyanosis, no edema Neurologic: normal mental status, non-focal exam, pupils equal and round, CN II- XII normal Psychiatric: mood appropriate CBC and BMP: 11/25/18 16:06 11/26/18 06:32 ABG, PT/INR, D-dimer: ABG POC ABG pH 7.487 (7.35-7.45) H 11/27/18 12:50 POC ABG pCO2 41.2 (35-45) 11/26/18 05:20 POC ABG pO2 83 (80-105) 11/27/18 12:50 POC ABG HCO3 21.9 (22-26 mml/L) 11/27/18 12:50 POC ABG Total CO2 23 (23-27mmol/L) 11/27/18 12:50 POC ABG O2 Sat 97 11/27/18 12:50 PT/INR, D-dimer D-Dimer 274.40 ng/mlDDU (0-234) H 11/25/18 16:06 Abnormal lab findings: Abnormal Labs 11/25/18 11/25/18 11/25/18 16:06 16:06 16:06 Lymph % (Auto) 12.0 L [place] % (Auto) 10.0 H [place] # 1.1 H Seg Neutrophils % 77.3 H Seg Neutrophils # 8.2 H D-Dimer 274.40 H POC ABG pH POC ABG pO2 Sodium 134 L Chloride 97.4 L BUN 8 L Creatinine 0.5 L Glucose 11/26/18 11/26/18 11/27/18 05:20 06:32 12:42 Lymph % (Auto) [place] % (Auto) [place] # Seg Neutrophils % Seg Neutrophils # D-Dimer POC ABG pH 7.629 H POC ABG pO2 109 H Sodium 133 L Chloride 96.5 L BUN Creatinine 0.5 L Glucose 116 H 11/27/18 12:50 Lymph % (Auto) [place] % (Auto) [place] # Seg Neutrophils % Seg Neutrophils # D-Dimer POC ABG pH 7.487 H POC ABG pO2 Sodium Chloride BUN Creatinine Glucose Chest x-ray: report reviewed (No acute abnormality identifies.), image reviewed CT scan - chest: report reviewed (No PE. Marked pulmonary emphysema.), image reviewed
[2018-11-28] MEDS: TYLENOL PO PRN (20:33)
[2018-11-28] MEDS: LOVENOX SUB-Q SCH ×2 (20:33→22:07)
[2018-11-28] MEDS: LIORESAL PO SCH ×2 (20:33→22:03)
[2018-11-28] MEDS: ZITHROMAX 500 MG in NACL 0.9% 250ML 250 ML IV SCH ×2 (20:34→22:04)
--- NOTE | 2018-11-28 21:51 | Progress Note ---
Assessment and Plan Assessment and plan: 73-year-old man 73-year-old man with history of hypertension, tobacco abuse, COPD who was driving from [place] to [place] he experienced shortness of breath, also complaining of cough with clear sputum Past medical history; hypertension, COPD, smoking Labs reviewed mild hyponatremia noted CT angiogram chest shows marked pulmonary emphysema, negative for PE Plan -Steroids nebs and azithromycin, respiratory consult, pulmonology consult appreciated -for dc will need steroid, nicotine patches/lozenges, patient does not want to try chantix (he is afraid of side effects), desat to 86% when walking today, will need amb o2 upon dc - continue medications for chronic conditions -counseled on smoking cessation > 10 minutes DVT prophylaxis with Lovenox Tentative dc home tomorrow with oxygen Diagnoses COPD exacerbation Acute hypoxic respiratory failure Hypertension Ongoing tobacco abuse History Interval history: Review of systems Constitutional: No fevers, no malaise, no joint pains CVS: No chest pain, no orthopnea, , no pedal edema GI: No abdominal pain, no diarrhea, no vomiting, no constipation Respiratory: Complaining of coughing, shortness of breath and wheezing Hospitalist Physical - Physical exam Narrative exam: General.: Appears well, mild distress, nontoxic HEENT: Moist mucous membranes, extraocular muscles intact, no lymphadenopathy Neck: supple Cardiac: S1-S2 heard Lungs: Decreased air entry, wheezing Abdomen: soft , nontender, nondistended, bowel sounds positive Extremities: no edema clubbing or cyanosis Skin: no rash or lesions Neurologic: no gross focal deficits Psych: calm, and cooperative - Constitutional Vitals: Temp Pulse Resp BP Pulse Ox 98.3 F 83 20 134/66 93 11/28/18 20:27 11/28/18 20:34 11/28/18 20:27 11/28/18 20:27 11/28/18 20:29 General appearance: Present: no acute distress, well-nourished Results - Labs CBC & Chem 7: 11/25/18 16:06 11/26/18 06:32 Labs: Laboratory Last Values WBC 10.6 K/mm3 (4.5-11.0) 11/25/18 16:06 RBC 4.83 M/mm3 (3.65-5.03) 11/25/18 16:06 Hgb 15.0 gm/dl (11.8-15.2) 11/25/18 16:06 Hct 44.6 % (35.5-45.6) 11/25/18 16:06 MCV 92 fl (84-94) 11/25/18 16:06 MCH 31 pg (28-32) 11/25/18 16:06 MCHC 34 % (32-34) 11/25/18 16:06 RDW 14.7 % (13.2-15.2) 11/25/18 16:06 Plt Count 283 K/mm3 (140-440) 11/25/18 16:06 Lymph % (Auto) 12.0 % (13.4-35.0) L 11/25/18 16:06 [place] % (Auto) 10.0 % (0.0-7.3) H 11/25/18 16:06 Eos % (Auto) 0.4 % (0.0-4.3) 11/25/18 16:06 Baso % (Auto) 0.3 % (0.0-1.8) 11/25/18 16:06 Lymph # 1.3 K/mm3 (1.2-5.4) 11/25/18 16:06 [place] # 1.1 K/mm3 (0.0-0.8) H 11/25/18 16:06 Eos # 0.0 K/mm3 (0.0-0.4) 11/25/18 16:06 Baso # 0.0 K/mm3 (0.0-0.1) 11/25/18 16:06 Seg Neutrophils % 77.3 % (40.0-70.0) H 11/25/18 16:06 Seg Neutrophils # 8.2 K/mm3 (1.8-7.7) H 11/25/18 16:06 D-Dimer 274.40 ng/mlDDU (0-234) H 11/25/18 16:06 POC ABG pH 7.487 (7.35-7.45) H 11/27/18 12:50 POC ABG pCO2 41.2 (35-45) 11/26/18 05:20 POC ABG pO2 83 (80-105) 11/27/18 12:50 POC ABG HCO3 21.9 (22-26 mml/L) 11/27/18 12:50 POC ABG Total CO2 23 (23-27mmol/L) 11/27/18 12:50 POC ABG O2 Sat 97 11/27/18 12:50 POC ABG Base Excess -1 ((-2) - (+3)mmol/L) 11/27/18 12:50 FiO2 21 % 11/27/18 12:50 Sodium 133 mmol/L (137-145) L 11/26/18 06:32 Potassium 4.4 mmol/L (3.6-5.0) 11/26/18 06:32 Chloride 96.5 mmol/L (98-107) L 11/26/18 06:32 Carbon Dioxide 23 mmol/L (22-30) 11/26/18 06:32 Anion Gap 18 mmol/L 11/26/18 06:32 BUN 12 mg/dL (9-20) 11/26/18 06:32 Creatinine 0.5 mg/dL (0.8-1.5) L 11/26/18 06:32 Estimated GFR > 60 ml/min 11/26/18 06:32 BUN/Creatinine Ratio 24 % 11/26/18 06:32 Glucose 116 mg/dL (75-100) H 11/26/18 06:32 Calcium 8.6 mg/dL (8.4-10.2) 11/26/18 06:32 Magnesium 2.00 mg/dL (1.7-2.3) 11/25/18 16:06 Troponin T < 0.010 ng/mL (0.00-0.029) 11/25/18 16:06 Active Medications - Current Medications Current Medications: Generic Name Dose Route Start Last Admin Trade Name Freq PRN Reason Stop Dose Admin Acetaminophen 650 mg 11/25/18 19:35 11/28/18 20:33 Tylenol PO 650 mg Q4H PRN Administration Pain MILD(1-3)/Fever >100.5/DOVE Albuterol 2.5 mg 11/25/18 19:35 11/26/18 09:29 Proventil IH 2.5 mg Q4HRT PRN Administration Shortness Of Breath Albuterol/Ipratropium 1 ampul 11/26/18 10:30 11/28/18 19:07 Duoneb *Not For Prn Use* IH Not Given Q6HRT JOSE RAFAEL Amlodipine Besylate 5 mg 11/26/18 11:00 11/28/18 20:34 Norvasc PO 5 mg BID JOSE RAFAEL Administration Arformoterol Tartrate 15 mcg 11/26/18 20:00 11/28/18 19:00 Nilson Weiru IH 15 mcg Q12HRT JOSE RAFAEL Administration Baclofen 10 mg 11/26/18 22:00 11/28/18 20:33 Lioresal PO 10 mg QHS JOSE RAFAEL Administration Budesonide 0.5 mg 11/26/18 20:00 11/28/18 19:00 Pulmicort IH 0.5 mg Q12HRT JOSE RAFAEL Administration Cyanocobalamin 100 mcg 11/26/18 11:00 11/28/18 10:43 Vitamin B-12 PO 100 mcg QDAY [facility] Administration Enoxaparin Sodium 40 mg 11/25/18 22:00 11/28/18 20:33 Lovenox SUB-Q 40 mg QDAY@2200 JOSE RAFAEL Administration Famotidine 10 mg 11/25/18 22:00 11/28/18 20:33 Pepcid PO 10 mg BID [facility] Administration Azithromycin 500 mg/ Sodium 250 mls @ 250 mls/hr 11/25/18 22:00 11/28/18 20: 34 Chloride IV 250 mls/hr Q24H JOSE RAFAEL Administration Isosorbide Mononitrate 30 mg 11/26/18 12:00 11/28/18 10:43 Imdur PO 30 mg DAILY JOSE RAFAEL Administration Methylprednisolone Sodium Succinate 60 mg 11/26/18 14:00 11/28/18 20:32 Solu-Medrol IV 60 mg Q8HR JOSE RAFAEL Administration Nicotine 21 mg 11/26/18 14:00 11/28/18 10:42 Habitrol TD 21 mg QDAY JOSE RAFAEL Administration Ondansetron HCl 4 mg 11/25/18 19:35 Zofran IV Q8H PRN Nausea And Vomiting Oxycodone/Acetaminophen 1 tab 11/25/18 19:35 Percocet 5/325 PO Q6H PRN Pain, Moderate (4-6) Sodium Chloride 10 ml 11/25/18 22:00 11/28/18 20:35 Sodium Chloride Flush Syringe 10 Ml IV 10 ml BID JOSE RAFAEL Administration Sodium Chloride 10 ml 11/25/18 19:35 Sodium Chloride Flush Syringe 10 Ml IV PRN PRN LINE FLUSH
[2018-11-28] MEDS: PROVENTIL IH PRN (23:29)
[2018-11-29] MEDS: DUONEB *Not for PRN Use IH SCH ×3 (01:04→14:28)
[2018-11-29] MEDS: PULMICORT IH SCH (09:30)
[2018-11-29] MEDS: BROVANA NEBU IH SCH (09:30)
[2018-11-29] MEDS: PEPCID PO SCH (10:18)
[2018-11-29] MEDS: VITAMIN B-12 PO SCH (10:18)
[2018-11-29] MEDS: IMDUR PO SCH (10:18)
[2018-11-29] MEDS: NORVASC PO SCH (10:18)
[2018-11-29] MEDS: SOLU-Medrol IV SCH ×2 (10:19→14:57)
[2018-11-29] MEDS: HABITROL TD SCH (10:19)
[2018-11-29] MEDS: SODIUM CHLORIDE FLUSH SYRINGE 10 ML IV SCH (10:20)
--- NOTE | 2018-11-29 13:50 | Progress Note ---
Assessment and Plan Patient awake and resting on 2 litres O2. O2 saturation 95%. Patient still complaining shortness of breath on exertion.I was told patients O2 dropping on exertion. I was told by nursing staff arranging home O2 2 litres. - Patient Problems (1) Acute hypoxemic respiratory failure Current Visit: Yes Status: Acute Plan to address problem: O2 2 litres via nasal canula. Albuterol/atrovent aerosol treatments q 6 hours. Continue I/V solumedrol Continue Zithromax. Continue S/C Lovenox. Continue Famotidine. (2) COPD with exacerbation Current Visit: Yes Status: Acute Plan to address problem: O2 2 litres via nasal canula. Albuterol/atrovent aerosol treatments q 6 hours. Continue I/V solumedrol Continue Zithromax. Continue S/C Lovenox. Continue Famotidine. PFTs as out patient. Continue Nicotin patch to stop smoking. (3) Hyponatremia syndrome Current Visit: Yes Status: Acute Plan to address problem: Improved. Patients recent Na+ 133. (4) Nicotine dependence with withdrawal Current Visit: Yes Status: Acute Qualifiers: Nicotine product type: cigarettes Qualified Code(s): F17.213 - Nicotine dependence, cigarettes, with withdrawal Plan to address problem: Continue Nicotin Patch to stop smoking. Subjective Date of service: 11/29/18 Interval history: Patient awake and resting on 2 litres O2. O2 saturation 95%. Patient still complaining shortness of breath on exertion.I was told patients O2 dropping on exertion. I was told by nursing staff arranging home O2 2 litres. Objective Vital Signs - 12hr 11/29/18 11/29/18 11/29/18 02:36 02:38 08:00 Temperature 97.8 F Pulse Rate 74 Pulse Rate [ 79 Anterior Bilateral Throughout] Pulse Rate [ Apical] Pulse Rate [ 82 Throughout] Respiratory 20 Rate Respiratory 20 Rate [Anterior Bilateral Throughout] Respiratory 18 Rate [ Throughout] Blood Pressure 113/59 O2 Sat by Pulse 94 Oximetry 11/29/18 11/29/18 11/29/18 08:10 09:00 09:33 Temperature 98.7 F Pulse Rate 81 Pulse Rate [ Anterior Bilateral Throughout] Pulse Rate [ 80 Apical] Pulse Rate [ Throughout] Respiratory 20 24 Rate Respiratory Rate [Anterior Bilateral Throughout] Respiratory Rate [ Throughout] Blood Pressure 142/71 O2 Sat by Pulse 95 92 95 Oximetry 11/29/18 11/29/18 10:00 10:18 Temperature Pulse Rate 85 81 Pulse Rate [ Anterior Bilateral Throughout] Pulse Rate [ Apical] Pulse Rate [ Throughout] Respiratory Rate Respiratory Rate [Anterior Bilateral Throughout] Respiratory Rate [ Throughout] Blood Pressure 142/71 O2 Sat by Pulse Oximetry Constitutional: no acute distress, alert, other (Shortness of breath on exertion.) Eyes: non-icteric ENT: oropharynx moist Neck: supple, no lymphadenopathy Ascultation: Bilateral: diminished breath sounds, other (Prolonged expiratory phase.) Cardiovascular: regular rate and rhythm Gastrointestinal: normoactive bowel sounds, soft, non-tender Integumentary: normal Extremities: no cyanosis, no edema Neurologic: normal mental status, non-focal exam, pupils equal and round, CN II- XII normal Psychiatric: mood appropriate CBC and BMP: 11/25/18 16:06 11/26/18 06:32 ABG, PT/INR, D-dimer: ABG POC ABG pH 7.487 (7.35-7.45) H 11/27/18 12:50 POC ABG pO2 83 (80-105) 11/27/18 12:50 POC ABG HCO3 21.9 (22-26 mml/L) 11/27/18 12:50 POC ABG Total CO2 23 (23-27mmol/L) 11/27/18 12:50 POC ABG O2 Sat 97 11/27/18 12:50 PT/INR, D-dimer 274.40 ng/mlDDU (0-234) H 11/25/18 16:06 Abnormal lab findings: Abnormal Labs 11/25/18 11/25/18 11/25/18 16:06 16:06 16:06 Lymph % (Auto) 12.0 L [place] % (Auto) 10.0 H [place] # 1.1 H Seg Neutrophils % 77.3 H Seg Neutrophils # 8.2 H D-Dimer 274.40 H POC ABG pH POC ABG pO2 Sodium 134 L Chloride 97.4 L BUN 8 L Creatinine 0.5 L Glucose 11/26/18 11/26/18 11/27/18 05:20 06:32 12:42 Lymph % (Auto) [place] % (Auto) [place] # Seg Neutrophils % Seg Neutrophils # D-Dimer POC ABG pH 7.629 H POC ABG pO2 109 H Sodium 133 L Chloride 96.5 L BUN Creatinine 0.5 L Glucose 116 H 11/27/18 12:50 Lymph % (Auto) [place] % (Auto) [place] # Seg Neutrophils % Seg Neutrophils # D-Dimer POC ABG pH 7.487 H POC ABG pO2 Sodium Chloride BUN Creatinine Glucose
[2018-11-29 14:35] VITALS: BP 114/70
--- NOTE | 2018-11-29 16:35 | Progress Note ---
Assessment and Plan Assessment and plan: 73-year-old man with history of hypertension, tobacco abuse, COPD who was driving from [place] to [place] he experienced shortness of breath, also complaining of cough with clear sputum Past medical history; hypertension, COPD, smoking Labs reviewed mild hyponatremia noted CT angiogram chest shows marked pulmonary emphysema, negative for PE Plan -Steroids nebs and azithromycin, respiratory consult, pulmonology consult appreciated -for dc will need steroid, nicotine patches/lozenges, patient does not want to try chantix (he is afraid of side effects), desat to 86% when , will need amb o2 upon dc - continue medications for chronic conditions -counseled on smoking cessation > 10 minutes DVT prophylaxis with Lovenox Tentative dc home when oxygen is arranged. Diagnoses COPD exacerbation Acute hypoxic respiratory failure Hypertension Ongoing tobacco abuse History Interval history: Patient was seen and evaluated this morning, and saturating well on intranasal oxygen. Hospitalist Physical - Physical exam Narrative exam: Not in cardiopulmonary distress. The patient appeared well nourished and normally developed. Vital signs as documented. Head exam is unremarkable. No scleral icterus . Neck is without jugular venous distension, thyromegaly, or carotid bruits. Lungs are clear to auscultation. Cardiac exam reveals regular rate and Rhythm. Abdominal exam reveals normal bowel sounds. Extremities are nonedematous. 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 No focal weakness. - Constitutional Vitals: Temp Pulse Resp BP Pulse Ox 97.9 F 80 18 114/70 91 11/29/18 12:45 11/29/18 14:25 11/29/18 14:25 11/29/18 12:45 11/29/18 12:45 General appearance: Present: no acute distress, well-nourished Results - Labs CBC & Chem 7: 11/25/18 16:06 11/26/18 06:32 Labs: Laboratory Last Values WBC 10.6 K/mm3 (4.5-11.0) 11/25/18 16:06 RBC 4.83 M/mm3 (3.65-5.03) 11/25/18 16:06 Hgb 15.0 gm/dl (11.8-15.2) 11/25/18 16:06 Hct 44.6 % (35.5-45.6) 11/25/18 16:06 MCV 92 fl (84-94) 11/25/18 16:06 MCH 31 pg (28-32) 11/25/18 16:06 MCHC 34 % (32-34) 11/25/18 16:06 RDW 14.7 % (13.2-15.2) 11/25/18 16:06 Plt Count 283 K/mm3 (140-440) 11/25/18 16:06 Lymph % (Auto) 12.0 % (13.4-35.0) L 11/25/18 16:06 [place] % (Auto) 10.0 % (0.0-7.3) H 11/25/18 16:06 Eos % (Auto) 0.4 % (0.0-4.3) 11/25/18 16:06 Baso % (Auto) 0.3 % (0.0-1.8) 11/25/18 16:06 Lymph # 1.3 K/mm3 (1.2-5.4) 11/25/18 16:06 [place] # 1.1 K/mm3 (0.0-0.8) H 11/25/18 16:06 Eos # 0.0 K/mm3 (0.0-0.4) 11/25/18 16:06 Baso # 0.0 K/mm3 (0.0-0.1) 11/25/18 16:06 Seg Neutrophils % 77.3 % (40.0-70.0) H 11/25/18 16:06 Seg Neutrophils # 8.2 K/mm3 (1.8-7.7) H 11/25/18 16:06 274.40 ng/mlDDU (0-234) H 11/25/18 16:06 POC ABG pH 7.487 (7.35-7.45) H 11/27/18 12:50 POC ABG pCO2 41.2 (35-45) 11/26/18 05:20 POC ABG pO2 83 (80-105) 11/27/18 12:50 POC ABG HCO3 21.9 (22-26 mml/L) 11/27/18 12:50 POC ABG Total CO2 23 (23-27mmol/L) 11/27/18 12:50 POC ABG O2 Sat 97 11/27/18 12:50 POC ABG Base Excess -1 ((-2) - (+3)mmol/L) 11/27/18 12:50 21 % 11/27/18 12:50 Sodium 133 mmol/L (137-145) L 11/26/18 06:32 Potassium 4.4 mmol/L (3.6-5.0) 11/26/18 06:32 Chloride 96.5 mmol/L (98-107) L 11/26/18 06:32 Carbon Dioxide 23 mmol/L (22-30) 11/26/18 06:32 18 mmol/L 11/26/18 06:32 BUN 12 mg/dL (9-20) 11/26/18 06:32 0.5 mg/dL (0.8-1.5) L 11/26/18 06:32 Estimated GFR > 60 ml/min 11/26/18 06:32 24 % 11/26/18 06:32 Glucose 116 mg/dL (75-100) H 11/26/18 06:32 Calcium 8.6 mg/dL (8.4-10.2) 11/26/18 06:32 Magnesium 2.00 mg/dL (1.7-2.3) 11/25/18 16:06 < 0.010 ng/mL (0.00-0.029) 11/25/18 16:06 Active Medications - Current Medications Current Medications: Generic Name Dose Route Start Last Admin Trade Name Freq PRN Reason Stop Dose Admin Acetaminophen 650 mg 11/25/18 19:35 11/28/18 20:33 Tylenol PO 650 mg Q4H PRN Administration Pain MILD(1-3)/Fever >100.5/DOVE Albuterol 2.5 mg 11/25/18 19:35 11/28/18 23:29 Proventil IH 2.5 mg Q4HRT PRN Administration Shortness Of Breath Albuterol/Ipratropium 1 ampul 11/26/18 10:30 11/29/18 14:28 Duoneb *Not For Prn Use* IH 1 ampul Q6HRT JOSE RAFAEL Administration Amlodipine Besylate 5 mg 11/26/18 11:00 11/29/18 10:18 Norvasc PO 5 mg BID JOSE RAFAEL Administration Arformoterol Tartrate 15 mcg 11/26/18 20:00 11/29/18 09:30 Brovana Nebu IH 15 mcg Q12HRT [facility] Administration Azithromycin 500 mg 11/29/18 22:00 Zithromax PO 12/03/18 22:01 QHS [facility] Baclofen 10 mg 11/26/18 22:00 11/28/18 22:03 Lioresal PO Not Given QHS [facility] Budesonide 0.5 mg 11/26/18 20:00 11/29/18 09:30 Pulmicort IH 0.5 mg Q12HRT [facility] Administration Cyanocobalamin 100 mcg 11/26/18 11:00 11/29/18 10:18 Vitamin B-12 PO 100 mcg QDAY [facility] Administration Enoxaparin Sodium 40 mg 11/25/18 22:00 11/28/18 22:07 Lovenox SUB-Q Not Given QDAY@2200 [facility] Famotidine 10 mg 11/25/18 22:00 11/29/18 10:18 Pepcid PO 10 mg BID [facility] Administration Isosorbide Mononitrate 30 mg 11/26/18 12:00 11/29/18 10:18 Imdur PO 30 mg DAILY [facility] Administration Methylprednisolone Sodium Succinate 60 mg 11/26/18 14:00 11/29/18 14:57 Solu-Medrol IV 60 mg Q8HR [facility] Administration Nicotine 21 mg 11/26/18 14:00 11/29/18 10:19 Habitrol TD 21 mg QDAY [facility] Administration Ondansetron HCl 4 mg 11/25/18 19:35 Zofran IV Q8H PRN Nausea And Vomiting Oxycodone/Acetaminophen 1 tab 11/25/18 19:35 Percocet 5/325 PO Q6H PRN Pain, Moderate (4-6) Sodium Chloride 10 ml 11/25/18 22:00 11/29/18 10:20 Sodium Chloride Flush Syringe 10 Ml IV 10 ml BID JOSE RAFAEL Administration Sodium Chloride 10 ml 11/25/18 19:35 Sodium Chloride Flush Syringe 10 Ml IV PRN PRN LINE FLUSH
[2018-11-29] MEDS ORDERED: ZITHROMAX PO SCH (22:00)
--- NOTE | 2018-12-05 08:10 | Discharge Summary ---
Providers - Providers Date of Admission: 11/25/18 19:35 Date of discharge: 11/30/18 Attending physician: BAHMAN GALLARDO MD 11/26/18 10:12 Consult to Physician [CONS] Routine Comment: Consulting Provider: JOSE BERMUDEZ Physician Instructions: Reason For Exam: copd 11/27/18 14:24 Consult to Case Management [CONS] Urgent Services Needed at Discharge: Home O2 Other Notified:: No Additional Physician Instructions: Oxygen for discharge planning if he qualifies for home oxygen therapy. Patient wants to leave first thing in the morning if at all possible Hospitalization Reason for admission: acute hypoxic respiratory failure, COPD exacerbation Condition: Fair Pertinent studies: CTA IMPRESSION: Marked pulmonary emphysema No CT evidence for acute pulmonary embolus. Hospital course: 73 YO Male with Nicotine Dependence, HTN, Asthma, COPD presents to ED for evaluation. Pt states that that he and his were travelling in their vehicle on their way from [place] to [place] when he experienced sudden onset shortness of breath. Pt acknowledges productive cough with increased production of clear sputum over the past 2 days. Pt denies fever, chills, chest pain, palpitatons, syncope, NVD, Trauma, back pain, nausea, lower extremity swelling, diaphoresis, Skin rash, or recent ill contacts. Pt presented to the nearest ED. Pt seen and evaluated in ED and found to a pulse oximetry of 85%-88% on room air prior to nebulizer therapy. Pt found to have Acute Hypoxemic Respiratory Failure secondary to COPD Exacerbation. Pt treated with nebulizer therapy, supplemental oxygen, and steroid therapy in ED with improvement in symptoms. Pt admitted to [facility] unit. No prior admission for review. No medication listed at time of admission. Patient admitted to the floor and was treated according to COPD protocol. Patient showed improvement. Home O2 evaluation was done and recommended that patient is home oxygen. Patient discharged with appropriate medications and home oxygen. Patient was hemodynamically stable at the time of discharge. Patient's questions and concerns were discussed as a bedside. Patient was counseled about cessation of nicotine smoking. Disposition: - TO HOME OR SELFCARE Time spent for discharge: 32 minutes - Discharge Diagnoses (1) Acute hypoxemic respiratory failure Status: Acute (2) COPD with exacerbation Status: Acute (3) Nicotine dependence with withdrawal Status: Acute Qualifiers: Nicotine product type: cigarettes Qualified Code(s): F17.213 - Nicotine dependence, cigarettes, with withdrawal Core Measure Documentation - Palliative Care Palliative Care/ Comfort Measures: Not Applicable - Core Measures Any of the following diagnoses?: none Exam - Physical Exam Narrative exam: Not in cardiopulmonary distress. The patient appeared well nourished and normally developed. Vital signs as documented. Head exam is unremarkable. No scleral icterus . Neck is without jugular venous distension, thyromegaly, or carotid bruits. Lungs are clear to auscultation. Cardiac exam reveals regular rate and Rhythm. Abdominal exam reveals normal bowel sounds. Extremities are nonedematous. 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 No focal weakness. - Constitutional Vitals: Temp Pulse Resp BP Pulse Ox 97.9 F 80 18 114/70 91 11/29/18 12:45 11/29/18 14:25 11/29/18 14:25 11/29/18 12:45 11/29/18 12:45 Plan Follow up with: R[place]DY [place] MD HALIMA [Referring] - 3-5 Days Prescriptions: ALBUTEROL Inhaler(NF) 1 puff INHALATION Q4H PRN #1 PRN Reason: Shortness Of Breath predniSONE [Deltasone] 30 mg PO .TAPER 15 Days tab Nicotine [Habitrol] 21 mg TD QDAY #30 patch ISOSORBIDE MONOnitrate [Imdur ER] 30 mg PO DAILY #30 tablet
== END 2018-11-29 18:05 | disposition home or self-care (01) | DRG 189 ==
LOC: ED 15:29 → 2B-ACE 19:35
PROVIDERS: ADMIT Internal Medicine; ATTEND Internal Medicine
PROC: 4A033R1 Measurement of Arterial Saturation, Peripheral, Percutaneous Approach (ICD-10-PCS; principal; 2018-11-26)
DX: J96.01 Acute respiratory failure with hypoxia (principal); E87.1 Hypo-osmolality and hyponatremia; J44.1 Chronic obstructive pulmonary disease with (acute) exacerbation; F17.213 Nicotine dependence, cigarettes, with withdrawal; I10 Essential (primary) hypertension; Z71.6 Tobacco abuse counseling; Z90.49 Acquired absence of other specified parts of digestive tract; Z82.49 Family history of ischemic heart disease and other diseases of the circulatory system; Z79.899 Other long term (current) drug therapy
CPT/HCPCS: 36415; 36600; 71045; 71275; 80048; 82803; 83735; 84484; 85025; 85379; 93005; 93010; 94640; 94760; 96365; 96375; 99406; G0378; J0456; J1650; J2920; J2930; J3475; J7050; Q9967